=== PATIENT | female | born 2005 | race African-American/Black ===

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

== ENCOUNTER 2025-01-24 14:10 | Emergency (ER) | payer SELFPAY | END 2025-01-24 18:12 | disposition home or self-care (01) | LOC: CSHERS 14:10 | DX: B35.4 Tinea corporis (principal); L30.9 Dermatitis, unspecified | CPT/HCPCS: 96372; 99282; J2919 ==